=== PATIENT | female | born 1980 | race Hispanic/Latino ===

== ENCOUNTER 2021-02-26 13:00 | Observation (INO) | payer BC, MEDICAID | END 2021-02-26 15:25 | disposition home or self-care (01) | LOC: LDH 13:00 | PROVIDERS: ADMIT Specialist; ATTEND Specialist | DX: O36.8330 Maternal care for abnormalities of the fetal heart rate or rhythm, third trimester, not applicable or unspecified (principal); O09.523 Supervision of elderly multigravida, third trimester; O34.211 Maternal care for low transverse scar from previous cesarean delivery; O24.419 Gestational diabetes mellitus in pregnancy, unspecified control; Z79.4 Long term (current) use of insulin; Z3A.36 36 weeks gestation of pregnancy; Z79.899 Other long term (current) drug therapy; Z98.890 Other specified postprocedural states | CPT/HCPCS: 59025; 76819; 96360; G0378 ×2; J7120 ==

== ENCOUNTER 2021-03-02 09:29 | Inpatient (IN) | payer BC, MEDICAID ==
[~2021-03-02] VITALS: Ht 172.7 cm; Wt 111.1 kg
[2021-03-02] MEDS ORDERED: CEFAZOLIN SODIUM 1 GM VIAL IVP PRN (10:00)
[2021-03-02] MEDS ORDERED: LACTATED RINGERS 1000ML 1,000 ML IV SCH ×2 (10:00→15:30)
[2021-03-02] MEDS ORDERED: CITRIC ACID/SODIUM CITRATE 30 ML UDCUP PO PRN (10:00)
[2021-03-02] MEDS ORDERED: METOCLOPRAMIDE 10 MG/2 ML VIAL IVP PRN ×2 (10:00→15:30)
[2021-03-02] MEDS ORDERED: FAMOTIDINE 20MG VIAL IV PRN (10:00)
[2021-03-02 10:28] LABS: HEMATOCRIT 30.1 % (36-48); MEAN CORPUSCULAR HEMOGLOBIN 31.4 pg (27.0-33.0); MEAN CORPUSCULAR HGB CONC 34.6 g/dL (32.0-36.0); MEAN CORPUSCULAR VOLUME 90.9 fL (79-99); RED BLOOD CELL COUNT(AUTO) 3.31 MIL/uL (4.00-5.50); RED CELL DISTRIBUTION WIDTH 13.6 % (11.0-15.5); WHITE BLOOD COUNT (AUTO) 7.3 K/uL (4.8-10.8)
[2021-03-02] MEDS ORDERED: ONDANSETRON 4MG INJ ONE (13:35)
[2021-03-02] MEDS ORDERED: DEXAMETHASONE SOD PHOSPHATE 10MG/ML 1ML VIAL ONE (13:35)
[2021-03-02] MEDS ORDERED: MORPHINE PF 100MG/10ML AMP IV ONE (13:36)
[2021-03-02] MEDS ORDERED: OXYTOCIN 10 USP UNITS/ML ONE (13:36)
[2021-03-02] MEDS ORDERED: FENTANYL CITRATE PF 50 MCG/1 ML 2ML VIAL ONE (13:36)
[2021-03-02] MEDS ORDERED: CEFAZOLIN SODIUM 1 GM VIAL IVP ONE (13:43)
[2021-03-02] MEDS ORDERED: CARBOPROST TROMETHAMINE 250 MCG/ML AMP IM ONE (14:12)
[2021-03-02] MEDS ORDERED: MISOPROSTOL 200 MCG TABLET ONE (14:12)
[2021-03-02] MEDS ORDERED: KETOROLAC 30MG VIAL (30MG/ML) ONE (14:27)
[2021-03-02] MEDS ORDERED: MEPERIDINE-PF 75 MG/ML SYG IM PRN (15:00)
[2021-03-02] MEDS ORDERED: 0.9%NACL 10ML VIAL IVP PRN (15:00)
[2021-03-02] MEDS ORDERED: PROMETHAZINE HCL 25 MG/ML 1ML AMPULE IM PRN (15:00)
[2021-03-02] MEDS ORDERED: 0.9%NACL 1000ML 1,000 ML IV SCH (15:30)
[2021-03-02] MEDS ORDERED: ONDANSETRON 4MG INJ IVP PRN (15:30)
[2021-03-02] MEDS ORDERED: IPRATROPIUM/ALBUTEROL SULFATE 3 ML SOLUTION IH PRN (15:30)
[2021-03-02] MEDS: DEXTROSE 5 %-0.45 % NACL 1,000 ML IV PRN (17:48)
[2021-03-02] MEDS: OXYTOCIN-LR 20 UNITS/1000 ML 1,000 ML IV PRN ×2 (18:25→18:26)
[2021-03-02] MEDS ORDERED: AEC81 PO (18:34)
[2021-03-02] MEDS ORDERED: INSU100I45 SQ (18:34)
[2021-03-02] MEDS ORDERED: INSU100V3 IJ (18:34)
[2021-03-02] MEDS ORDERED: LABE100T5 PO (18:34)
[2021-03-02 20:10] VITALS: BP 145/77
[2021-03-02] MEDS: INSULIN HUMULIN R 100 UNIT/ML 3ML SQ SCH (21:00)
[2021-03-02] MEDS: LABETALOL HCL 100 MG TABLET PO SCH (21:03)
[2021-03-02 21:38] VITALS: BP 145/77
[2021-03-02 22:11] VITALS: BP 145/77
[2021-03-02] MEDS: CEFAZOLIN 3GM /D5W 100ML 100 ML IV SCH (22:17)
[2021-03-03] VITALS: BP 131/68
[2021-03-03 03:10] VITALS: BP 122/57
[2021-03-03] MEDS: DEXTROSE 5 %-0.45 % NACL 1,000 ML IV PRN (03:24)
[2021-03-03] MEDS: CEFAZOLIN 3GM /D5W 100ML 100 ML IV SCH (05:48)
[2021-03-03 07:09] LABS: HEMATOCRIT 27.6 % (36-48); MEAN CORPUSCULAR HEMOGLOBIN 30.6 pg (27.0-33.0); MEAN CORPUSCULAR HGB CONC 33.3 g/dL (32.0-36.0); MEAN CORPUSCULAR VOLUME 91.7 fL (79-99); RED BLOOD CELL COUNT(AUTO) 3.01 MIL/uL (4.00-5.50); RED CELL DISTRIBUTION WIDTH 13.8 % (11.0-15.5); WHITE BLOOD COUNT (AUTO) 8.8 K/uL (4.8-10.8)
[2021-03-03 07:15] VITALS: BP 147/75
[2021-03-03 07:16] LABS: HEPATITIS Bs ANTIGEN SCREEN P Negative (Negative)
[2021-03-03] MEDS: INSULIN HUMULIN R 100 UNIT/ML 3ML SQ SCH ×2 (07:30→11:30)
[2021-03-03] MEDS ORDERED: IBUPROFEN 600 MG TABLET PO PRN (08:00)
[2021-03-03] MEDS ORDERED: SIMETHICONE 80 MG TAB.CHEW PO PRN (08:00)
[2021-03-03] MEDS ORDERED: ACETAMINOPHEN 500 MG TABLET PO PRN (08:00)
[2021-03-03] MEDS ORDERED: BISACODYL 10 MG SUPP.RECT RC PRN (08:00)
[2021-03-03] MEDS ORDERED: HYDROCODONE/ACETAMINOPHEN 5/325 MG TAB PO PRN (08:00)
[2021-03-03] MEDS ORDERED: ACETAMINOPHEN WITH CODEINE 1 TAB TAB PO PRN (08:00)
[2021-03-03] MEDS ORDERED: LANOLIN 30GM OINTMENT TP PRN (08:00)
[2021-03-03] MEDS: LABETALOL HCL 100 MG TABLET PO SCH ×2 (08:51→18:32)
[2021-03-03] MEDS ORDERED: DOCUSATE SODIUM 100 MG CAP PO SCH (09:00)
[2021-03-03] MEDS ORDERED: MEASLES/MUMPS/RUBELLA VACCINE, LIVE 0.5 ML/VIAL SQ SCH (09:30)
[2021-03-03] MEDS ORDERED: DIPH,PERTUSS(ACELL),TET VAC/PF 0.5 ML VIAL IM SCH (09:30)
[2021-03-03 11:50] VITALS: BP 142/71
[2021-03-03 16:33] VITALS: BP 150/70
[2021-03-03 18:28] VITALS: BP 151/86
[2021-03-03] MEDS ORDERED: ACET1TAB25 PO (18:43)
[2021-03-03] MEDS ORDERED: METF500S7 PO (18:44)
== END 2021-03-03 19:05 | disposition home or self-care (01) | DRG 785 ==
LOC: LDH 09:29 → OBSVTOIN 09:29 → WSH 18:21
PROVIDERS: ADMIT Specialist; ATTEND Specialist
PROC: 10D00Z1 Extraction of Products of Conception, Low, Open Approach (ICD-10-PCS; 2021-03-02)
PROC: 0UB70ZZ Excision of Bilateral Fallopian Tubes, Open Approach (ICD-10-PCS; principal; 2021-03-02 13:35)
DX: O36.4XX0 Maternal care for intrauterine death, not applicable or unspecified (principal); O34.211 Maternal care for low transverse scar from previous cesarean delivery; Z37.1 Single stillbirth; Z3A.37 37 weeks gestation of pregnancy; O16.4 Unspecified maternal hypertension, complicating childbirth; O24.92 Unspecified diabetes mellitus in childbirth; N73.6 Female pelvic peritoneal adhesions (postinfective); O99.892 Other specified diseases and conditions complicating childbirth; Z30.2 Encounter for sterilization; Z79.4 Long term (current) use of insulin; Z83.3 Family history of diabetes mellitus
CPT/HCPCS: 36415; 59510; 76805; 82948; 85027; 86592; 86850; 86900; 86901; 87070; 87076; 87340; 90707; 90715; A4344; G0378; J0690; J1100; J1885; J2274; J2405; J2590; J3010; J3490; J7120